=== PATIENT | male | born 2000 | race Caucasian/White ===

== ENCOUNTER → 2025-03-24 07:01 | Outpatient (REF) | payer BC, SELFPAY | LOC: HWRCS 07:01 | PROVIDERS: ATTENDING PHYSICIAN Internal Medicine Cardiovascular Disease; FAMILY PHYSICIAN Nurse Practitioner Adult Health | DX: R03.0 Elevated blood-pressure reading, without diagnosis of hypertension (principal) | CPT/HCPCS: 93306 ==